=== PATIENT | male | born 1960 | race Caucasian/White ===

== ENCOUNTER 2024-08-03 10:13 | Emergency (ER) | payer OTHER, SELFPAY ==
[2024-08-03 10:28] VITALS: BP 105/62; PULSE 99; RESP 16; TEMP 36.6; O2SAT 97
--- NOTE | 2024-08-03 10:40 | ED_ITS ---
HPI - URI/Sore Throat General Chief Complaint: Upper Respiratory Infection Stated Complaint: congestion Time Seen by Provider: 08/03/24 10:40 Source: patient Mode of arrival: ambulatory Limitations: no limitations History of Present Illness HPI Narrative: 63-year-old male presents with complaint of sinus congestion, sinus pressure, postnasal drainage, cough. Symptoms for 2-3 days. Afebrile. No chest pain o r shortness breath. taking [id number] Mucinex. All systems reviewed and negative except as noted above. Related Data Allergies Allergy/AdvReac Type Severity Reaction Status Date / Time No Known Allergies Allergy Verified 08/03/24 10:20 Review of Systems Review of Systems: CONSTITUTIONAL: Denies fever, chills, or sweats. EYES: Denies visual changes, redness, or discharge. ENT: Reports rhinorrhea, congestion, postnasal drainage. Denies sore throat, or otalgia. CARDIOVASCULAR: Denies chest pain, palpitations, or edema. RESPIRATORY: reports cough. Denies dyspnea. GASTROINTESTINAL: Denies abdominal pain, nausea, vomiting, or diarrhea. GENITOURINARY: Denies dysuria or hematuria. SKIN: Denies rash or itching. MUSCULOSKELETAL: Denies back pain, joint pain, or myalgia. NEUROLOGIC: Denies headache, numbness, or weakness. PSYCHIATRIC: Denies anxiety or depression. All other systems reviewed are negative, except as documented in HPI. PMFSH Comments At time of signature, agree with nursing past medical, surgical, social and family history. There is no relevant family history pertinent to the presenting complaint. Exam Narrative: GENERAL: This is a well-nourished, well-developed patient, in no apparent distress. HEAD: normocephalic, atraumatic. EYES: PERRL. Sclera clear/white. Vision is grossly intact. EARS: External ears normal, auditory canals clear and without drainage, TMs normal without perforation. Hearing grossly intact. NOSE: External nose normal with erythema and swelling to bilateral nares with clear nasal drainage THROAT: Mucous membranes moist, erythema with clear postnasal drainage NECK: Neck supple, non-tender without lymphadenopathy, masses or thyromegaly. CARDIOVASCULAR: Regular rate and rhythm without murmurs, gallops, or rubs. RESPIRATORY: Clear to auscultation. Breath sounds equal bilaterally. No wheezes, rales, or rhonchi. SKIN: warm, Dry, intact with no suspicious lesions or rash, good texture and turgor. NEURO: awake, alert, and oriented to person, place and time. There were no obvious focal neurologic abnormalities. EXTREMITIES: No joint tenderness, effusion, or edema noted. Course Course Level of Care: Express Care Visit Vital Signs Vital signs: Vital Signs Temperature 36.6 C 08/03/24 10:28 Pulse Rate 99 08/03/24 10:28 Respiratory Rate 16 08/03/24 10:28 Blood Pressure 105/62 08/03/24 10:28 Pulse Oximetry 97 08/03/24 10:28 Oxygen Delivery Room Air 08/03/24 10:28 Temperature 36.6 C 08/03/24 10:28 Pulse Rate 99 08/03/24 10:28 Respiratory Rate 16 08/03/24 10:28 Blood Pressure 105/62 08/03/24 10:28 Pulse Oximetry 97 08/03/24 10:28 Oxygen Delivery Room Air 08/03/24 10:28 reviewed MDM - URI/Sore Throat MDM Narrative Medical decision making narrative: COVID and flu test negative. Patient is well-appearing, nontoxic. Lungs clear to auscultation. Recommend [id number] medications to treat viral symptoms. Please be advised this is a medical document. It is intended for [id number] communication. It is written in medical language and may contain unfamiliar abbreviations or verbiage. Medical documents are intended to carry relevant information, facts as evident, and the clinical opinion of the practitioner at the time of the encounter. This report may have been done utilizing a voice recognition system. Attempts have been made to correct errors. However, there may be uncorrected grammatical, spelling, and recognition errors present. The file time of this note does not necessarily represent the time of service. Differential Diagnosis Differential diagnosis: Likely upper respiratory infection, sinusitis and viral infection Lab Data Labs: Lab Results 08/03/24 Range/Units 10:52 POC Influenza A Ag Negative (Negative) POC Influenza B Ag Negative (Negative) POC SARS CoV-2 Ag Negative (Negative) Discharge Plan Discharge Clinical Impression: Acute viral sinusitis Patient Disposition: Home, Self-Care Condition: Stable Instructions: Sinusitis (ED) Additional Instructions: your COVID and influenza test was negative today. Your symptoms are viral and may last 10-14 days. Take medications as prescribed. Purchase [id number] Zyrtec D and take as directed on packaging. This medication is found by the pharmacist. Drink at least 64 oz water a day. Place cool mist humidifier in bedroom where you sleep. See your doctor if symptoms are not improving. Patient Language: Albanian Prescriptions: New benzonatate 200 mg capsule 200 mg PO TID PRN (Reason: cough) Qty: 20 0RF fluticasone propionate [Flonase Allergy Relief] 50 mcg/actuation spray,suspension 1 spray intranasal BID Qty: 16 0RF Rx Instructions: administer into each nostril Follow-up/Referrals: UNKNOWN,DOCTOR [Primary Care Provider] - Time of Disposition: 10:46
[2024-08-03 10:53] LABS: EDCOVIDSCREEN Negative (Negative); EDINFLUASCREEN Negative (Negative); EDINFLUBSCREEN Negative (Negative)
--- OUTSIDE RECORDS SUMMARY | 2024-08-03 11:44 | XMS_ITS | Encounter Summary ---
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 Historical Provider Final Res ult documented in this encounter Visit Diagnoses Not on filedocumented in this encounter Care Teams Edi Architect Relationship Specialty Start Date End Date Rui Tong Jr., PA [address] [place] [id number] PCP - General 03/02/19 Monica Terrazas MD [facility] [address] [place] [address] Consulting Physician Family Medicine 05/16/19 07/30/21 documented as of this encounter
--- OUTSIDE RECORDS SUMMARY | 2024-08-03 11:44 | XMS_ITS | Referral Summary ---
Author Organization [facility] [employer] Address [address] [place] [address] Care Team Providers Care Steam Turbine Operator Name Role Phone Osorio Arzate PA-C Primary Care Provider [phone] Source Comments [facility] [employer],non-owned Affiliates and Associated Physician Practices is amultiple site organization consisting of ambulatory clinics and hospital sitesin [place], [place], [place] and [place]. This disclosure is being madepursuant to the Care Everywhere program and may not contain all information available regarding this patient. Last updated 18.[facility] [employer] Allergies No known active allergies Medications * Be aware that medications may not be up to date on this document. Alwaysverify current medications with the patient. Medication Sig Dispensed Refills Start Date End Date Status docusate sodium (COLACE) 100 MG capsule Take 1 Cap by mouth once daily. 10 Cap 0 09/24/2013 Active Social History Tobacco Use Types Packs/Day Years Used Date Smoking Tobacco: Never Assessed Smokeless Tobacco: Current Chew Alcohol Use Standard Drinks/Week Comments No 0 (1 standard drink = 0.6 oz pur e alcohol) Sex and Gender Information Value Date Recorded Sex Assigned at Not on file Gender Identity Not on file Sexual Orientation Not on file Last Filed Vital Signs Vital Sign Reading Time Taken Comments Blood Pressure 108/63 09/24/2013 6:31 PM CDT Pulse 93 09/24/2013 4:19 PM CDT Temperature 37.1 C (98.7 F) 09/24/2013 4:19 PM CDT Respiratory Rate 12 09/24/2013 4:19 PM CDT Oxygen Saturation 99% 09/24/2013 6:31 PM CDT Inhaled Oxygen Concentration - - Weight 70.3 kg (155 lb) 09/24/2013 4:19 PM CDT Height 182.9 cm (6') 09/24/2013 4:19 PM CDT Body Mass Index 21.02 09/24/2013 4:19 PM CDT Plan of Treatment Not on file Care Teams Steam Turbine Operator Relationship Specialty Start Date End Date Osorio Arzate PA-C PCP - General 09/24/13
--- OUTSIDE RECORDS SUMMARY | 2024-08-03 11:44 | XMS_ITS | Patient Health Summary ---
Author Organization [facility] [employer] Address [address] [place] [address] Care Team Providers Care Bd Special Education Teacher Name Role Phone Osorio Arzate PA-C Primary Care Provider [phone] Note from [facility],non-owned Affiliates and Associated Physician Practices is amultiple site organization consisting of ambulatory clinics and hospital sitesin [place], [place], [place] and [place]. This disclosure is being madepursuant to the Care Everywhere program and may not contain all information available regarding this patient. Last updated 18.[facility] Allergies No known active allergies Medications * Be aware that medications may not be up to date on this document. Alwaysverify current medications with the patient. * docusate sodium (COLACE) 100 MG capsule(Started 09/24/2013) Take 1 Cap by mouth once daily. Social History Tobacco Use Types Packs/Day Years [...] Mass Index 21.02 09/24/2013 4:19 PM CDT Procedures * XR ANKLE LEFT 3VW OR MORE(Performed 09/24/2013) Performed for Pain in limb * XR KNEE RIGHT 4VW OR MORE(Performed 09/24/2013) Performed for Pain in limb * XR TIBIA FIBULA RIGHT 2VW(Performed 09/24/2013) Performed for Pain in limb * XR ANKLE RIGHT 3VW OR MORE(Performed 09/24/2013) Performed for Pain in limb Results * XR ANKLE 3+ VW LEFT (09/24/2013 6:30 PM CDT) Anatomical Region Laterality Modality Lower Extremity Radiographic Teresa ging 09/24/2013 6:52 PM CDT Narrative 09/24/2013 8:23 PM CDT LEFT ANKLE, (THREE VIEWS): 09/24/2013 HISTORY: Left ankle pain. There is no fracture and no dislocation in the left ankle. Procedure Note Rui Trammell MD - 09/24/2013 LEFT ANKLE, (THREE VIEWS): 09/24/2013 HISTORY: Left ankle pain. There is no fracture and no dislocation in the left ankle. Allyson Benjamin MD DIAGNOSTIC IMAGI NG ORDERABLES * XR KNEE 4+ VW RIGHT (09/24/2013 4:45 PM CDT) Anatomical Region Laterality Modality Lower Extremity Radiographic Teresa ging 09/24/2013 5:05 PM CDT Narrative 09/24/2013 6:19 PM CDT RIGHT KNEE, (FOUR VIEWS): 09/24/2013 HISTORY: Right knee pain. There is minimal hypertrophic spurring of the intercondylar eminences of the tibia consistent with early degenerative change, however no joint space narrowing. No acute fracture and no dislocation. No knee effusion. Otherwise negative right knee radiographs. Procedure Note Rui Trammell MD - 09/24/2013 RIGHT KNEE, (FOUR VIEWS): 09/24/2013 HISTORY: Right knee pain. There is minimal hypertrophic spurring of the intercondylar eminences of the tibia consistent with early degenerative change, however no joint space narrowing. No acute fracture and no dislocation. No knee effusion. Otherwise negative right knee radiographs. Allyson Benjamin MD DIAGNOSTIC IMAGI NG ORDERABLES * XR TIBIA AND FIBULA 2 VW RIGHT (09/24/2013 4:40 PM CDT) Anatomical Region Laterality Modality Lower Extremity Radiographic Teresa ging 09/24/2013 5:07 PM CDT Narrative 09/24/2013 6:19 PM CDT RIGHT TIBIA-FIBULA, (TWO VIEWS): 09/24/2013 HISTORY: Trauma. There is no fracture or other acute bony abnormality in the right tibia and fibula. Procedure Note Rui Trammell MD - 09/24/2013 RIGHT TIBIA-FIBULA, (TWO VIEWS): 09/24/2013 HISTORY: Trauma. There is no fracture or other acute bony abnormality in the right tibia and fibula. Allyson Benjamin MD DIAGNOSTIC IMAGI NG ORDERABLES * XR ANKLE 3+ VW RIGHT (09/24/2013 4:38 PM CDT) Anatomical Region Laterality Modality Lower Extremity Radiographic Teresa ging 09/24/2013 5:04 PM CDT Impressions 09/24/2013 6:19 PM CDT Negative right ankle radiographs. Narrative 09/24/2013 6:19 PM CDT RIGHT ANKLE, (THREE VIEWS): 09/24/2013 HISTORY: Trauma. There is no fracture and no dislocation in the right ankle. The ankle mortise was unremarkable. Procedure Note Rui Trammell MD - 09/29/2013 RIGHT ANKLE, (THREE VIEWS): 09/24/2013 HISTORY: Trauma. There is no fracture and no dislocation in the right ankle. The ankle mortise was unremarkable. IMPRESSION Negative right ankle radiographs. Allyson Benjamin MD DIAGNOSTIC IMAGI NG ORDERABLES Care Teams Bd Special Education Teacher Relationship Specialty Start Date End Date Osorio Arzate PA-C PCP - General 09/24/13
--- OUTSIDE RECORDS SUMMARY | 2024-08-03 11:44 | XMS_ITS | Encounter Summary ---
Author Organization [facility] Facility Care Team Providers Care Retail Account Representative Name Role Phone FREDI Tong Jr., Rui Olmstead Primary Care Provide r Monica Terrazas MD Unavailable [phone] Encounter Details Date Type Department Care Team (Latest Contact Info) Description 01/04/2018 Orders Only [facility] CLINCONV ProviderJayda MD [address] [place] [id number] Social History Tobacco Use Types Packs/Day Years Used Date Smoking Tobacco: Never Assessed Sex and Gender Information Value Date Recorded Sex Assigned at Not on file 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 Historical Provider Final Res ult documented in this encounter Visit Diagnoses Not on filedocumented in this encounter Care Teams Retail Account Representative Relationship Specialty Start Date End Date Rui Tong Jr., PA [address] [place] [address] PCP - General 03/02/19 Monica Terrazas MD [address] [facility] [address] Consulting Physician Family Medicine 05/16/19 07/30/21 documented as of this encounter
--- OUTSIDE RECORDS SUMMARY | 2024-08-03 11:44 | XMS_ITS | Clinical Summary ---
Author Organization [facility] [employer] Address [address] [place] [address] Care Team Providers Care Talent Acquisition Coordinator Name Role Phone Osorio Arzate PA-C Primary Care Provider [phone] Source Comments [facility] [employer],non-owned Affiliates and Associated Physician Practices is amultiple site organization consisting of ambulatory clinics and hospital sitesin [place], [place], [place] and [place]. This disclosure is being madepursuant to the Care Everywhere program and may not contain all information available regarding this patient. Last updated 18.[facility] [employer] Allergies No known active allergies Medications * [...] 09/24/2013 4:19 PM CDT Plan of Treatment Health Maintenance Due Date Last Done Comments COLOGUARD (AGES 45-75) - COL ON CA SCREENING 1961 COLON MONITORING 1961 COLONOSCOPY - COLON CA SCREENING 1961 CT COLONOGRAPHY - COLON CA SCREENING 1961 Colorectal Cancer Screening 1961 FIT - COLON CA SCREENING 1961 FLEX SIG - COLON CA SCREENING 1961 LIPID TESTING 1961 HIV SCREENING 1976 HEPATITIS C SCREENING 12/10/1979 DTAP/TDAP/TD VACCINES (1 - Tdap) 1980 PNEUMOCOCCAL VACCINE 50+ (1 of 1 - PCV) 12/15/2011 ZOSTER VACCINE (1 of 2) 12/15/2011 COVID-19 VACCINE (1 - 2023-2 5 season) 2024 INFLUENZA VACCINE (#1) 2024 DEPRESSION SCREENING 06/08/2024 Respiratory Syncytial Virus (RSV) Vaccine Pt: or over 60 yrs (1 - 1-dose 75+ series) 2036 HEPATITIS B VACCINE Aged Out No longe r eligible based on patient's age to complete this topic HIB VACCINE Aged Out No longer eligi ble based on patient's age to complete this topic HPV VACCINE Aged Out No longer eligi ble based on patient's age to complete this topic MENINGOCOCCAL (Group B) VACCINE Aged Out No longer eligible based on patient's age to complete this topic MENINGOCOCCAL VACCINE Aged Out No elvin andrea eligible based on patient's age to complete this topic PNEUMOCOCCAL VACCINE Aged Out No long er eligible based on patient's age to complete this topic Care Teams Talent Acquisition Coordinator Relationship Specialty Start Date End Date Osorio Arzate PA-C PCP - General 09/24/13
--- OUTSIDE RECORDS SUMMARY | 2024-08-03 11:44 | XMS_ITS | Clinical Summary ---
Author Organization [address] Address [address] [place] [phone] Care Team Providers Care Sales Merchandising Specialist Name Role Phone FREDI Tong Jr., Rui Olmstead Primary Care Provide r Allergies No known active allergies Medications esomeprazole DR (NexIUM) 20 mg capsule Take 1 capsule (20 mg total) by mouth daily before breakfast Active meclizine (ANTIVERT) 25 mg tabletIndicati ons:Vertigo Take 1 tablet (25 mg total) by mouth 3 (three) times a day as needed for dizziness 45 tablet 3 01/21/20 23 Active tadalafiL (CIALIS) 5 mg tablet Take 1 tablet (5 mg total) by mouth daily 90 tablet 3 01/11/20 24 Active silodosin (RAPAFLO) 8 mg capsule TAKE 1 CAPSULE DAILY 90 capsule 3 07/19/19 25 Active silodosin (RAPAFLO) 8 mg capsule Take 1 capsule (8 mg total) by mouth daily 30 capsule 09/22/19 24 025 Discontinued Active Problems Problem Noted Date Diagnosed Date Gastroesophageal reflux disease 01/17/2022 Overview (01/17/2022): Added automatically from request for surgery [id number] Screening for colon cancer 01/17/2022 Overview (01/17/2022): Added automatically from request for surgery [id number] Impotence of organic origin 06/19/2015 Unspecified urinary incontinence 06/19/2015 Benign prostatic hyperplasia 06/19/2015 Inguinal pain 06/19/2015 Encounters Date Type Department Care Team Description 05/18/2024 Telephone [facility] [address] [place] [address] [address] [place] [address] Monica Grimm MA xray results 05/17/2024 1:23 PM SALES ATTENDANT BUILDING MATERIALS - 05/17/2024 11:59 PM SALES ATTENDANT BUILDING MATERIALS Hospital Encounter [facility] MOB 1 DIAG IMG [address] [place] [address] Bilateral elbow joint pain Discharge Disposition: Discharge to home or self care 05/17/2024 1:00 PM SALES ATTENDANT BUILDING MATERIALS Office Visit [facility] Primary Care [address] [place] [address] [address] [place] [address] Rui Tong Jr., FREDI Bilateral elbow joint pain (Primary Dx); Encounter for immunization from Last 3 Months Immunizations Immunization Administration Dates Next Due Influenza, Unspecified 04/09/2023(Deferr ed: Patient Refused),03/08/2022(Deferred: Patient Refused),08/17/2019(Deferred: Patient Refused) Pfizer SARS-CoV-2 Monovalent Vaccination (12+ Yrs) PURPLE 09/21/2020,08/30/2020 Tdap 09/19/2016 ZOSTER Recombinant 05/17/2024 Surgical History Surgery Date Site/Laterality Comments CHOLECYSTECTOMY ERCP COLONOSCOPY 06/08/2011 - 06/07/2012 Medical History Medical History Date Comments Abnormal weight loss Weight loss - (Added by TW Conv) Personal history of other di seases of the digestive system History of constipation - (A dded by TW Conv) GERD (gastroesophageal reflux disease) Family History Medical History Relation Name Comments Lung cancer Father Family history of lung cancer - (Added by TW Conv) No Known Problems Mother Relation Name Status Comments Father Maternal Grandfather Maternal Grandmother Mother Alive Paternal Grandfather Paternal Grandmother Social History Tobacco Use Types Packs/Day Years Used Date Smoking Tobacco: Never Smokeless Tobacco: Current Chew Tobacco Cessation:Ready to Q uit: Not Asked; Counseling Given: Not Answered Alcohol Use Standard Drinks/Week Comments Yes 0 (1 standard drink = 0.6 oz pur e alcohol) very seldom AUDIT-C Answer Date Recorded Q1: How often do you have a drink containing alcohol? Never 03/20/2022 Q2: How many drinks containi ng alcohol do you have on a typical day when you are drinking? Patient does not drink Q3: How often do you have si x or more drinks on one occasion? Never 03/20/2022 PHQ-2 Answer Date Recorded PHQ-2 Total Score (If total score is 3 or more points, staff should administer the PHQ-9) 0 11/06/2023 Sex and Gender Information Value Date Recorded Sex Assigned at Not on file Legal Sex Male 7:00 AM SALES ATTENDANT BUILDING MATERIALS Gender Identity Not on file Sexual Orientation Not on file Obstetrics History Last Filed Vital Signs Vital Sign Reading Time Taken Comments Blood Pressure 106/68 05/17/2024 12:46 PM SALES ATTENDANT BUILDING MATERIALS Pulse 66 05/17/2024 12:46 PM SALES ATTENDANT BUILDING MATERIALS Temperature 36.4 C (97.5 F) 05/17/2024 12:46 PM SALES ATTENDANT BUILDING MATERIALS Respiratory Rate 20 05/17/2024 12:46 PM SALES ATTENDANT BUILDING MATERIALS Oxygen Saturation 99% 05/17/2024 12:46 PM SALES ATTENDANT BUILDING MATERIALS Inhaled Oxygen Concentration - - Weight 68.7 kg (151 lb 6.4 oz) 05/17/2024 12:46 PM SALES ATTENDANT BUILDING MATERIALS Height 182.9 cm (6' 0.01 ) 05/17/2024 12:[address] Body Mass Index 20.53 05/17/2024 12:46 PM SALES ATTENDANT BUILDING MATERIALS Plan of Treatment Health Maintenance Due Date Last Done Comments Hepatitis B Screening 12/15/1979 Zoster Vaccine (2 of 2) 07/12/2024 05/17/2024 Depression Screening 11/05/2024 11/06/2023, 08/12/2022, 07/31/2021, Additional history exists Regular Well Visit/Exam 18-64 11/05/2024 11/06/2023, 11/06/2023, 08/12/2022, Additional history exists Influenza Vaccine (#1) 2024 Postp oned from 02/07/2024 (Patient declined, but will receive in the future) Covid-19 Vaccine ( season) 2025 06/15/2021, 09/21/2020, 08/30/2020 Postponed from 02/07/2024 (Patient declined, but will receive in the future) Prostate Cancer Screening-PSA 11/08/2025 11/09/2023, 08/07/2022, 05/17/2019, Additional history exists DTaP/Tdap/Td Vaccine (2 - Td or Tdap) 09/19/2026 09/19/2016 Colon Cancer Screening-Colonoscopy 03/20/2032 03/20/2022 Colon Cancer Screening-CT Colonography Discontinued 03/20/2022 Colon Cancer Screening-DNA Stool Discontinued 03/20/2022 Colon Cancer Screening-FIT Discontinued 03/20/2022 Colon Cancer Screening-Sigmoidoscopy Discontinued 03/20/2022 Hepatitis C Screening Completed 11/09/2023 , 05/17/2019, 10/08/2015 Pneumococcal vaccine <65 Aged Out No longer eligible based on patient's age to complete this topic Procedures Procedure Name Priority Date/Time Associated Diagnosis Comments XR ELBOW RIGHT 3 OR MORE VIEWS Schedule Routine, Read Routine (OP Routine) 05/17/2024 1:41 PM SALES ATTENDANT BUILDING [employer]S Bilateral elbow joint pain XR ELBOW LEFT 3 OR MORE VIEWS Schedule Routine, Read Routine (OP Routine) 05/17/2024 1:41 PM SALES ATTENDANT BUILDING MATERIALS Bilateral elbow joint pain HEPATITIS C ANTIBODY Routine 11/09/2023 6:47 AM CDT Annual physical exam Encounter for hepatitis C screening test for low risk patient PSA SCREEN Routine 11/09/2023 6:47 AM CDT Annual physical exam BPH without obstruction/lower urinary tract symptoms COLONOSCOPY Routine 03/20/2022 from Last 3 Months or Most Recently Relevant to Health Maintenance Results * XR Elbow Right 3+ Vw (05/17/2024 1:41 PM SALES ATTENDANT BUILDING MATERIALS) Anatomical Region Laterality Modality Upper Extremities, Elbow Right Compute d Radiography 05/17/2024 6:07 PM SALES ATTENDANT BUILDING MATERIALS Narrative 05/17/2024 6:10 PM SALES ATTENDANT BUILDING MATERIALS EXAM DESCRIPTION: XR ELBOW LEFT 3 OR MORE VIEWS; XR ELBOW RIGHT 3 OR MORE VIEWS REASON FOR STUDY: L elbow pain x 1 month ; R elbow pain x 6 wks FINDINGS: Three views each elbow submitted without comparison. No acute fractures are identified. Alignment is normal. The joint spaces are normal. There are no effusions. Small olecranon enthesophytes are present. IMPRESSION: Small bilateral olecranon enthesophytes. THIS IS AN ELECTRONICALLY VERIFIED FINAL REPORT 05/17/2024 6:10 PM - Electronically signed by Gabriele Mary M.D. MF: LUIS ANTONIO Report ID: [id number] Reading Location: [place] [address] Procedure Note Gabriele Mary MD - 05/17/2024 EXAM DESCRIPTION: XR ELBOW LEFT 3 OR MORE VIEWS; XR ELBOW RIGHT 3 OR MORE VIEWS REASON FOR STUDY: L elbow pain x 1 month ; R elbow pain x 6 wks FINDINGS: Three views each elbow submitted without comparison. No acute fractures are identified. Alignment is normal. The joint spacesare normal. There are no effusions. Small olecranon enthesophytes arepresent. IMPRESSION: Small bilateral olecranon enthesophytes. THIS IS AN ELECTRONICALLY VERIFIED FINAL REPORT 05/17/2024 6:10 PM - Electronically signed by Gabriele Mary M.D. MF: LUIS ANTONIO Report ID: [id number] Reading Location: [place] [address] Rui Tong Jr., FREDI IMG XR PROCEDURES Fin al Result * XR Elbow Left 3+ Vw (05/17/2024 1:41 PM SALES ATTENDANT BUILDING MATERIALS) Anatomical Region Laterality Modality Upper Extremities, Elbow Left Compute d Radiography 05/17/2024 6:07 PM SALES ATTENDANT BUILDING MATERIALS Narrative 05/17/2024 6:10 PM SALES ATTENDANT BUILDING MATERIALS EXAM DESCRIPTION: XR ELBOW LEFT 3 OR MORE VIEWS; XR ELBOW RIGHT 3 OR MORE VIEWS REASON FOR STUDY: L elbow pain x 1 month ; R elbow pain x 6 wks FINDINGS: Three views each elbow submitted without comparison. No acute fractures are identified. Alignment is normal. The joint spaces are normal. There are no effusions. Small olecranon enthesophytes are present. IMPRESSION: Small bilateral olecranon enthesophytes. THIS IS AN ELECTRONICALLY VERIFIED FINAL REPORT 05/17/2024 6:10 PM - Electronically signed by Gabriele Mary M.D. MF: LUIS ANTONIO Report ID: [id number] Reading Location: [place] [address] Procedure Note Gabriele Mary MD - 05/17/2024 EXAM DESCRIPTION: XR ELBOW LEFT 3 OR MORE VIEWS; XR ELBOW RIGHT 3 OR MORE VIEWS REASON FOR STUDY: L elbow pain x 1 month ; R elbow pain x 6 wks FINDINGS: Three views each elbow submitted without comparison. No acute fractures are identified. Alignment is normal. The joint spacesare normal. There are no effusions. Small olecranon enthesophytes arepresent. IMPRESSION: Small bilateral olecranon enthesophytes. THIS IS AN ELECTRONICALLY VERIFIED FINAL REPORT 05/17/2024 6:10 PM - Electronically signed by Gabriele Mary M.D. MF: LUIS ANTONIO Report ID: [id number] Reading Location: [place] [address] Rui Tong Jr., FREDI IMG XR PROCEDURES Fin al Result * PSA screen (11/09/2023 6:47 AM CDT) PSA-Total 3.10 <=5.40 ng/mL Comment: Interpretive Data AGE SEX REFERENCE INTERVAL 0 minutes-150 years Female None 0 minutes-49 years Male None 50-59 years Male 0-3.90 60-69 years Male 0-5.40 70-79 years Male 0-6.20 80-150 years Male 0-6.20 The Pat PSA Total assay procedure was used. Results from different manufacturers or methods may not be comparable. Serial testing should be performed using the same method. Current interpretive data last revised 21. Testing performed by: [facility], [address] [place] [address]., [id number] Blood 11/09/2023 6:47 AM CDT 11/09/2023 7:05 AM CDT FREDI Correa Jr. LAB BLOOD ORDERABLES Final Result Performing Organization Address [facility] Co de Phone Number NOHEMI [facility] [place] [address] * Hepatitis C antibody Blood (11/09/2023 6:47 AM CDT) Hep C Ab Nonreactive Nonreactive Comment: Antibodies to HCV not detected. Does NOT exclude the possibility of recent exposure to HCV. Current interpretive data was last revised on 22 Interpretive Data Nonreactive: Antibodies to HCV not detected. Does NOT exclude the possibility of recent exposure to HCV. Equivocal: Equivocal for HCV antibodies. Supplemental molecular testing will be automatically performed to determine infection status in accordance with current CDC screening recommendations. Reactive: Positive for HCV antibodies. This may represent current or past HCV infection. Supplemental molecular testing will be automatically performed to determine current infection status in accordance with current CDC screening recommendations. Interpretive data was last revised on 2019. Blood 11/09/2023 6:47 AM CDT 11/09/2023 8:26 AM CDT FREDI Correa Jr. LAB MICROBIOLOGY - GE NERAL ORDERABLES Final Result Performing Organization Address [facility] Co de Phone Number NOHEMI [address] [place] [address] * Colonoscopy (03/20/2022) Anatomical Region Laterality Modality Other Historical Provider MD ENDOSCOPY PROCEDURES Jihan l Result from Last 3 Months or Most Recently Relevant to Health Maintenance Insurance [facility] [id number] [place] [id number] Care Teams Sales Merchandising Specialist Relationship Specialty Start Date End Date Rui Tong Jr., PA [address] [place] [phone] PCP - General 03/02/19
--- OUTSIDE RECORDS SUMMARY | 2024-08-03 11:44 | XMS_ITS | Referral Summary ---
Author Organization [address] Address [address] [place] [phone] Care Team Providers Care Radio News Anchor Name Role Phone FREDI Tong Jr., Robert James Primary Care Provide r Encounters Date Type Department Care Team Description 05/18/2024 Telephone [facility] Primary Care [address] [place] [phone] Monica Grimm MA xray results 05/17/2024 1:23 PM CAR RENTAL AGENT - 05/17/2024 11:59 PM CAR RENTAL AGENT Hospital Encounter [facility] MOB 1 DIAG IMG [address] [place] [address] Bilateral elbow joint pain Discharge Disposition: Discharge to home or self care 05/17/2024 1:00 PM CAR RENTAL AGENT Office Visit [facility] Primary Care [address] [place] [phone] Rui Tong Jr., PA Bilateral elbow joint pain (Primary Dx); Encounter for immunization from Last 3 Months Allergies No known active allergies Medications esomeprazole [...] (01/17/2022): Added automatically from request for surgery [id number] Screening for colon cancer 01/17/2022 Overview (01/17/2022): Added automatically from request for surgery [id number] Impotence of organic origin 06/19/2015 Unspecified urinary incontinence 06/19/2015 Benign prostatic hyperplasia 06/19/2015 Inguinal pain 06/19/2015 Immunizations Immunization Administration Dates Next Due Influenza, Unspecified 04/09/2023(Deferr ed: Patient Refused),03/08/2022(Deferred: Patient Refused),08/17/2019(Deferred: Patient Refused) Pfizer SARS-CoV-2 Monovalent Vaccination (12+ Yrs) PURPLE 09/21/2020,08/30/2020 Tdap 09/19/2016 ZOSTER Recombinant 05/17/2024 Social History Tobacco Use Types Packs/Day Years [...] on file Legal Sex Male 7:00 AM CAR RENTAL AGENT Gender Identity Not on file Sexual Orientation Not on file Last Filed Vital Signs Vital Sign Reading Time Taken Comments Blood Pressure 106/68 05/17/2024 12:46 PM CAR RENTAL AGENT Pulse 66 05/17/2024 12:46 PM CAR RENTAL AGENT Temperature 36.4 C (97.5 F) 05/17/2024 12:46 PM CAR RENTAL AGENT Respiratory Rate 20 05/17/2024 12:46 PM CAR RENTAL AGENT Oxygen Saturation 99% 05/17/2024 12:46 PM CAR RENTAL AGENT Inhaled Oxygen Concentration - - Weight 68.7 kg (151 lb 6.4 oz) 05/17/2024 12:46 PM CAR RENTAL AGENT Height 182.9 cm (6' 0.01 ) 05/17/2024 12:[address] Body Mass Index 20.53 05/17/2024 12:46 PM CAR RENTAL AGENT Plan of Treatment Not on file Procedures Procedure Name Priority Date/Time Associated Diagnosis Comments XR ELBOW RIGHT 3 OR MORE VIEWS Schedule Routine, Read Routine (OP Routine) 05/17/2024 1:41 PM CAR RENTAL AGENT Bilateral elbow joint pain XR ELBOW LEFT 3 OR MORE VIEWS Schedule Routine, Read Routine (OP Routine) 05/17/2024 1:41 PM CAR RENTAL AGENT Bilateral elbow joint pain HEPATITIS C ANTIBODY [...] Elbow Right 3+ Vw (05/17/2024 1:41 PM CAR RENTAL AGENT) Anatomical Region Laterality Modality Upper Extremities, Elbow Right Compute d Radiography 05/17/2024 6:07 PM CAR RENTAL AGENT Narrative 05/17/2024 6:10 PM CAR RENTAL AGENT EXAM DESCRIPTION: XR ELBOW LEFT 3 OR [...] Mary M.D. MF: LUIS ANTONIO Report ID: [id number] Reading Location: [id number] Procedure Note Gabriele Mary MD - 05/17/2024 [...] Mary M.D. MF: LUIS ANTONIO Report ID: [id number] Reading Location: [place] [address] Rui Tong Jr., FREDI IMG XR PROCEDURES Fin al Result * XR Elbow Left 3+ Vw (05/17/2024 1:41 PM CAR RENTAL AGENT) Anatomical Region Laterality Modality Upper Extremities, Elbow Left Compute d Radiography 05/17/2024 6:07 PM CAR RENTAL AGENT Narrative 05/17/2024 6:10 PM CAR RENTAL AGENT EXAM DESCRIPTION: XR ELBOW LEFT 3 OR [...] Mary M.D. MF: LUIS ANTONIO Report ID: [id number] Reading Location: [id number] Procedure Note Gabriele Mary MD - 05/17/2024 [...] Mary M.D. MF: LUIS ANTONIO Report ID: [id number] Reading Location: [id number] FREDI Correa Jr. IMG XR PROCEDURES Fin al Result * [...] data last revised 21. Testing performed by: [facility], [address] [place] [address]., [id number] Blood 11/09/2023 6:47 AM CDT 11/09/2023 7:05 AM CDT FREDI Correa Jr. LAB BLOOD ORDERABLES Final Result Performing Organization Address [facility] Co de Phone Number NOHEMI [address] [address] * Hepatitis C antibody Blood (11/09/2023 6:47 [...] NERAL ORDERABLES Final Result Performing Organization Address [facility] Co de Phone [place] [phone] [facility] [place] [address] * Colonoscopy (03/20/2022) Anatomical Region Laterality Modality Other Historical Provider ENDOSCOPY PROCEDURES Jihan l Result from Last 3 Months or Most Recently Relevant to Health Maintenance Insurance [facility] [id number] [place] [address] Care Teams Radio News Anchor Relationship Specialty Start Date End Date Rui Tong Jr., PA [address] [place] [id number] [facility] - General 03/02/19
--- OUTSIDE RECORDS SUMMARY | 2024-08-03 11:44 | XMS_ITS | Continuity of Care Document ---
Author Name [facility] Organization [facility] Care Team Providers Care Gas Plant Dispatcher Name Role Phone [facility] Unavailable Unavailable Problems Combined list of problems from Department of Defense and Veterans [facility] facilities. It does not include entries that were removed or entered in error. Problem Status Onset Date Problem Type Date of Resolution Comme nts Source cervicalgia Active Condition DoD Medications Combined list of outpatient medications from Department of Defense and Veterans Affairs facilities.Medications provided include 1) outpatient medications from the last 15 months, and 2) patient-reported medications. Medication Details Route Status Patient Instructions Prescription Expires Prescription Number Last Dispense Date Ordering Provider Order Date Order Qty Source SILODOSIN (silodosin) , 8 MG, CAPSULE, ORAL, AVKARE, 90 ea. BOTTLE Cancele d [id number] : 2023 0 Pharmac y Data Transac tion Service Facilit y SILODOSIN (silodosin) , 8 MG, CAPSULE, ORAL, AVKARE, 90 ea. BOTTLE Active [id number] 2023 90 Pharmac y Data Transac tion Service Facilit y TADALAFIL (tadalafil) , 5 MG, TABLET, ORAL, AVKARE, 30 ea. BOTTLE Active [id number] 2023 30 Pharmac y Data Transac tion Service Facilit y TADALAFIL (tadalafil) , 5 MG, TABLET, ORAL, AVKARE, 30 ea. BOTTLE Active [id number] 2023 30 Pharmac y Data Transac tion Service Facilit y Immunizations Combined list of available immunizations from the Department of Defense and Veterans Affairs facilities. Immunization Series Date Given Administered By Site Reaction Lot Number CVX Code Drug Confectionery Drops Machine Operator Status Comments Source COVID-19, mRNA, LNP-S, PF, 30 mcg/0.3 mL dose 2021 [employer] (PFR) Not Given COVID-19, mRNA, LNP-S, PF, 30 mcg/0.3 mL dose DoD Influenza, injectable, quadrivalent, preservative free 1 2014 Unknown, Provider [id number] [facility] ([place]) complet ed Influenza , injectabl e, quadrival ent, preservat missy free DoD influenza virus vaccine, split virus (incl. purified surface antigen)-reti red CODE 1 2007 Unknown, Provider [id number] [facility] ([facility]) complet ed influenza virus vaccine, split virus (incl. purified surface antigen)- retired CODE DoD influenza virus vaccine, split virus (incl. purified surface antigen)-reti red CODE 1 2005 Unknown, Provider [id number] 15 [facility] ([facility]) complet ed influenza virus vaccine, split virus (incl. purified surface antigen)- retired CODE DoD influenza virus vaccine, whole virus 1 2001 Unknown, Provider [id number] 16 Sanofi Pasteur ([facility]) complet ed influenza virus vaccine, whole virus DoD influenza virus vaccine, whole virus 1 2000 Unknown, Provider [id number] 16 Sanofi Pasteur ([facility]) complet ed influenza virus vaccine, whole virus DoD influenza virus vaccine, whole virus 1 2000 Unknown, Provider [id number] 16 Stephanie ([place]) complet ed influenza virus vaccine, whole virus DoD influenza virus vaccine, whole virus 1 1998 Unknown, Provider [id number] 16 Stephanie ([place]) complet ed influenza virus vaccine, whole virus DoD influenza virus vaccine, whole virus 1 1997 Unknown, Provider [id number] 16 Lorna (CON) complet ed influenza virus vaccine, whole virus DoD hepatitis A vaccine, adult dosage 2 1997 Unknown, Provider [id number] Merck (MSD) complet ed hepatitis A vaccine, adult dosage DoD influenza virus vaccine, whole virus 1 1996 Unknown, Provider [id number] 16 Stephanie (Inactive) ([place]) complet ed influenza virus vaccine, whole virus [facility] trivalent poliovirus vaccine, live, oral 1 1996 Unknown, Provider 02 () complet ed trivalent polioviru s vaccine, live, oral [facility] tetanus and diphtheria toxoids, adsorbed, preservative free, for adult use (2 Lf of tetanus toxoid and 2 Lf of diphtheria toxoid) 1 1996 Unknown, Provider 09 () complet ed tetanus and diphtheri a toxoids, adsorbed, preservat missy free, for adult use (2 Lf of tetanus toxoid and 2 Lf of diphtheri a toxoid) [facility] measles, mumps and rubella virus vaccine 1 1980 Unknown, Provider 03 () complet ed measles, mumps and rubella virus vaccine DoD Encounters Combined list of: 1) Encounters from Department of Veterans Affairs facilities going backup to the last 18 months, not all PA inpatient encounters are included; 2) Encounters from the Department of Defense facilities going backup to 280 months. Location Location Details Encounter Type Encounter Number Reason For Visit Attending Provider ADM Date DC Date Status Disposition Source [address] [place] [address] Josh ROCHA [place] [place] Non-[facility] OUTPATIENT [id number] pinched nerve in neck JAMEE JOHNSON 11/30 Released w/o Limitations [address] [place] [address] Josh ROCHA [place] [place] Non-[facility]) Procedures Combined list of: 1) Procedures from Department of Veterans Affairs facilities going back up to thelast 18 months, not all PA non-surgical procedures are included; 2) All procedures from the Department of Defense facilities. Procedure Procedure Type Code Date Perfomer Comments Medhat green SPLINT 01/02/2006 [facility] Social History Combined list of available smoking, tobacco, and other social history from Department of Defense and Veterans Affairs facilities. Social History Type Response Date Comment Medhat green This section is an empty social history section. [facility]
--- OUTSIDE RECORDS SUMMARY | 2024-08-03 11:45 | XMS_ITS | Encounter Summary ---
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 Historical Provider Final Res ult * PROCEDURE - RESULT (10/31/2015 12:00 AM CDT) Narrative 10/31/2015 12:00 AM CDT Ordered by an unspecified provider. us Historical Provider Final Res ult documented in this encounter Visit Diagnoses Not on filedocumented in this encounter Care Teams Collar Feller Relationship Specialty Start Date End Date Rui Tong Jr., PA [address] [place] [id number] PCP - General 03/02/19 Monica Terrazas MD [address] [place], [place] [id number] Consulting Physician Family Medicine 05/16/19 07/30/21 documented as of this encounter
--- OUTSIDE RECORDS SUMMARY | 2024-08-03 11:45 | XMS_ITS | Encounter Summary ---
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 Historical Provider Final Res ult documented in this encounter Visit Diagnoses Not on filedocumented in this encounter Care Teams Molded Grid And Parts Inspector Relationship Specialty Start Date End Date Rui Tong Jr., PA [address] [place] [id number] PCP - General 03/02/19 Monica Terrazas MD [address] [facility] [place] [place] [address] Consulting Physician Family Medicine 05/16/19 07/30/21 documented as of this encounter
--- OUTSIDE RECORDS SUMMARY | 2024-08-03 11:45 | XMS_ITS | Encounter Summary ---
Author Organization [facility] Facility Care Team Providers Care Precision Agriculture Specialist Name Role Phone FREDI Tong Jr., Rui Olmstead Primary Care Provide r Monica Terrazas MD Unavailable [phone] Encounter Details Date Type Department Care Team (Latest Contact Info) Description 11/05/2015 Orders Only [facility] CLINCONV ProviderJayda MD [address] [place] [address] Social History Tobacco Use Types Packs/Day Years Used Date Smoking Tobacco: Never Assessed Sex and Gender Information Value Date Recorded Sex Assigned at Not on file 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 Historical Provider Final Res ult documented in this encounter Visit Diagnoses Not on filedocumented in this encounter Care Teams Precision Agriculture Specialist Relationship Specialty Start Date End Date Rui Tong Jr., PA [address] [place] [address] PCP - General 03/02/19 Monica Terrazas MD [address] [facility] [place] [address] Consulting Physician Family Medicine 05/16/19 07/30/21 documented as of this encounter
--- OUTSIDE RECORDS SUMMARY | 2024-08-03 11:45 | XMS_ITS | Encounter Summary ---
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 Historical Provider Final Res ult documented in this encounter Visit Diagnoses Not on filedocumented in this encounter Care Teams Equipment Service Technician Relationship Specialty Start Date End Date Rui Tong Jr., PA [address] [place] [id number] PCP - General 03/02/19 Monica Terrazas MD [address] [facility] [place] [address] Consulting Physician Family Medicine 05/16/19 07/30/21 documented as of this encounter
--- OUTSIDE RECORDS SUMMARY | 2024-08-03 11:45 | XMS_ITS | Encounter Summary ---
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 Historical Provider Final Res ult * PROCEDURE - RESULT (10/29/2015 12:00 AM CDT) Narrative 10/29/2015 12:00 AM CDT Ordered by an unspecified provider. us Historical Provider Final Res ult documented in this encounter Visit Diagnoses Not on filedocumented in this encounter Care Teams Bag Making Machine Tender Relationship Specialty Start Date End Date Rui Tong Jr., PA [address] [place] [address] PCP - General 03/02/19 Monica Terrazas MD [address] [place], [place] [id number] Consulting Physician Family Medicine 05/16/19 07/30/21 documented as of this encounter
--- OUTSIDE RECORDS SUMMARY | 2024-08-03 11:45 | XMS_ITS | Clinical Summary ---
Author Organization [facility] Address [address] [place] [address] Care Team Providers Care Strategic Marketing Leader Name Role Phone Osorio Arzate PA-C Primary Care Provider [phone] Social History Tobacco Use Types Packs/Day Years Used Date Smoking Tobacco: Never Assessed Sex and Gender Information Value Date Recorded Sex Assigned at Not on file Legal Sex Male 5:39 PM CDT Gender Identity Not on file Sexual Orientation Not on file Plan of Treatment Health Maintenance Due Date Last Done Comments Colorectal Cancer Screening Colonoscopy (10 Years) 1961 Annual Physical 1964 Hepatitis C 12/15/1979 DTaP, Tdap and Td Vaccines ( 1 - Tdap) 1980 Zoster Vaccines (1 of 2) 12/15/2011 COVID-19 Vaccine (2023-2 5 season) 2024 Influenza Adult (#1) 2024 RSV Immunization or 60+ Years (1 - 1-dose 75+ series) 2036 Meningococcal B Vaccine Aged Out No l onger eligible based on patient's age to complete this topic Meningococcal Vaccine Aged Out No elvin andrea eligible based on patient's age to complete this topic Pneumococcal Vaccine: Pediat rics (0 to 5 Years) and At-Risk Patients (6 to 64 Years) Aged Out No longer eligible b ased on patient's age to complete this topic RSV Immunizations Under 20 Months Aged Out No longer eligible based on patient's age to complete this topic Care Teams Strategic Marketing Leader Relationship Specialty Start Date End Date Osorio Arzate PA-C PCP - General 01/29/15
== END 2024-08-03 10:49 | disposition home or self-care (01) ==
PROVIDERS: Emergency Provider Nurse Practitioner Family
DX: J01.90 Acute sinusitis, unspecified (principal); Z20.822 Contact with and (suspected) exposure to COVID-19; N40.0 Benign prostatic hyperplasia without lower urinary tract symptoms; K21.9 Gastro-esophageal reflux disease without esophagitis; M19.90 Unspecified osteoarthritis, unspecified site
CPT/HCPCS: 87426; 87804; 99203; G0463